=== PATIENT | female | born 1995 | race Two or more races ===

== ENCOUNTER 2023-11-13 08:36 | Emergency (ER) | payer MEDICAID, OTHER ==
[~2023-11-13] VITALS: Ht 157.5 cm; Wt 88.1 kg
[2023-11-13 09:20] LABS: Urine Bacteria FEW /hpf (None Seen); Urine Blood 3+ /uL (Negative); Urine Protein, UAD TRACE (Negative); Urine Specific Gravity 1.014 (1.001-1.035); Urine Urobilinogen Normal (Negative); Urine WBC 26 /hpf (0 - 5); Urine pH 6.5 (5.0-9.0)
[2023-11-13 09:22] LABS: Urine Clarity Cloudy (Clear); Urine Color Yellow (Yellow)
[2023-11-13] MEDS ORDERED: CEPH250C PO (10:16)
[2023-11-13 13:30] VITALS: BP 115/71; PULSE 70; RESP 16; TEMP 98.2; O2SAT 100
== END 2023-11-13 13:54 | disposition home or self-care (01) ==
LOC: ER 08:36
DX: O23.41 Unspecified infection of urinary tract in pregnancy, first trimester (principal); N39.0 Urinary tract infection, site not specified; R10.2 Pelvic and perineal pain; Z3A.01 Less than 8 weeks gestation of pregnancy
CPT/HCPCS: 36415; 76801; 76817; 81001; 84702